=== PATIENT | male | born 1980 | race Caucasian/White ===

== ENCOUNTER 2021-09-30 17:50 | Emergency (ER) | payer OTHER ==
[~2021-09-30] VITALS: Ht 170.2 cm; Wt 90.7 kg
[2021-09-30 18:10] VITALS: BP_SYST 119
--- NOTE | 2021-09-30 18:10 | NUR ---
PT TRIAGED AND PLACED IN ER LOBBY FOR AVAILABLE BED IN MAIN ER
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
--- NOTE | 2021-09-30 18:25 | NUR ---
ER DR. ROMERO EXAMINING PT
[2021-09-30] MEDS ORDERED: SOM350 PO (18:41)
[2021-09-30] MEDS ORDERED: IBUP-1971 PO (18:41)
[2021-09-30 19:08] VITALS: BP_SYST 119
--- NOTE | 2021-09-30 19:09 | NUR ---
Patient given written and verbal discharge instructions and verbalizes understanding. ER MD discussed with patient the results and treatment provided. Patient in stable condition. ID arm band removed. Rx of Motrin and Soma given. Patient educated on pain management and to follow up with PMD. Pain Scale 0/10. Opportunity for questions provided and answered. Medication side effect fact sheet provided.
== END 2021-09-30 19:09 | disposition home or self-care (01) ==
LOC: SED 17:50
DX: S09.90XA Unspecified injury of head, initial encounter (principal); Z79.899 Other long term (current) drug therapy; V49.49XA Driver injured in collision with other motor vehicles in traffic accident, initial encounter; Y93.89 Activity, other specified; Y92.89 Other specified places as the place of occurrence of the external cause; Y99.8 Other external cause status
CPT/HCPCS: 99283